=== PATIENT | male | born 1960 | race Caucasian/White ===

== ENCOUNTER → 2018-12-15 | Day surgery (SDC) | payer BC ==
[2018-12-15] MEDS: Lactated Ringers 1,000 ML IV SCH (08:05)
[2018-12-15] MEDS: Meperidine PF 50 MG/ML Syringe IV ONE (08:43)
[2018-12-15] MEDS: Midazolam 1 MG/ML 2 ML SDV IV ONE (08:44)
[2018-12-15] MEDS: Meperidine PF 25 MG/ML Syringe IV ONE (08:48)
--- NOTE | 2018-12-15 13:44 | OR ---
DATE OF OPERATION: 12/15/2018 PREOPERATIVE DIAGNOSIS: HEMATOCHEZIA. POSTOPERATIVE DIAGNOSIS: HEMATOCHEZIA. SURGEON: Young Reynoso MD PROCEDURE: DIAGNOSTIC COLONOSCOPY WITH BIOPSIES X3. ANESTHESIA: Conscious sedation with 75 mg of Demerol and 4 mg of Versed with continuous O2 sat monitoring and nurse assist. O2 sats remained above 90% the entire procedure. COMPLICATIONS: None. SPECIMEN: 1. Sigmoid biopsy x2. 2. Rectal biopsy x1. FINDINGS: 1. Full-length colonoscopy. 2. Moderate sigmoid diverticulosis with focal areas of likely diverticular inflammation. 3. Minimal rectal proctitis. RECOMMENDATIONS: Ongoing medical followup. INDICATIONS: The patient is a 58-year-old male who presented with hematochezia at times over the last couple of weeks. He does not have any documented history of significant hemorrhoid disease. His last colonoscopy however was over 10 years ago. We elected to proceed with diagnostic scope. DESCRIPTION OF PROCEDURE: The patient was prepped and draped, placed in the left lateral decubitus position. A lubricated Olympus colonoscope was inserted and easily advanced to the cecum. We were able to directly visualize the ileocecal valve and appendiceal orifice. The bowel prep was adequate. Upon withdrawal, the cecum, ascending and transverse colons were completely unremarkable. Descending colon was benign. The patient has scattered diverticula throughout the entire sigmoid and into the rectosigmoid junction, moderate in severity in certain places. He had a few areas in the distal sigmoid area that looked like they had some resolving colitis, very mild. We did do 2 biopsies of those areas. No signs of any polyps, mass, ulcerations, or vascular abnormalities. No bleeding sites. The rectal vault was essentially benign. There is some prominent hemorrhoidal tissue, but no active bleeding. May be a little bit of distal proctitis in the perianal area. We did do a biopsy for confirmation. Air was then suctioned from the colon. The scope was removed without complication. JOSE/LEDA /[id number]
== END ==
LOC: CC.SDS 07:47
PROVIDERS: ATTEND Family Medicine
DX: K57.31 Diverticulosis of large intestine without perforation or abscess with bleeding (principal); K52.832 Lymphocytic colitis; K62.89 Other specified diseases of anus and rectum; K64.9 Unspecified hemorrhoids; Z87.891 Personal history of nicotine dependence; Z88.0 Allergy status to penicillin
CPT/HCPCS: J2175; J2250; J7120

== ENCOUNTER 2021-08-15 09:08 | Emergency (ER) | payer BC, OTHER ==
[2021-08-15 09:34] LABS: CHLORIDE,CL 101 mEq/L (98-106); SODIUM,NA 134 mEq/L (136-145)
[2021-08-15] MEDS ORDERED: Cefepime 2 GM Vial IVPUSH ONE (10:47)
[2021-08-15] MEDS: cefTRIAXone 1 GM Vial IVPUSH SCH ×2 (10:47→10:50)
--- NOTE | 2021-08-15 11:03 | EDM.PDOC ---
ED HPI GENERAL MEDICAL PROBLEM - General Chief Complaint: General Stated Complaint: R KNEE SWELLING Time Seen by Provider: 08/15/21 09:20 Source of Information: Reports: Patient History Limitations: Reports: No Limitations - History of Present Illness INITIAL COMMENTS - FREE TEXT/NARRATIVE: Curt is a 61 year old male who presents to ER with complaints of right knee swelling, redness and pain. Started yesterday, was much worse last night. reports knee was very swollen, was warm and he was quite uncomfortable. They did elevate and apply ice. Had temp of 100.7 last evening, took Tylenol at that time and admits he was able to sleep okay. This am, redness and warmth continued. Has had previous issues with this in the past in the left knee but does not recall it being as hot or red. 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 Onset: Gradual Duration: Hour(s):, Constant Location: Reports: Lower Extremity, Right Quality: Reports: Ache, Throbbing Severity: Moderate Improves with: Reports: Medication Associated Symptoms: Reports: Fever/Chills. Denies: Confusion, Loss of Appetite , Nausea/Vomiting, Shortness of Breath Treatments [employer] WORKER: Reports: Acetaminophen R KNEE Pain Score (Numeric/FACES): 5 - Related Data Allergies Allergy/AdvReac Type Severity Reaction Status Date / Time Penicillins Allergy Cannot Verified 08/15/21 09:08 Remember Home Meds: Home Meds Budesonide [Budesonide EC] 3 mg PO DAILY 08/15/21 [History] Sulfamethoxazole/Trimethoprim [Bactrim Ds Tablet] 1 each PO BID #20 tablet 08/15/21 [Rx] Past Medical History Respiratory History: Reports: Asthma Social & Family History - Family History Family Medical History: No Pertinent Family History - Tobacco Use Tobacco Use Status *Q: Never Tobacco User - Caffeine Use Caffeine Use: Reports: None - Recreational Drug Use Recreational Drug Use: No ED ROS GENERAL - Review of Systems Review Of Systems: See Below Constitutional: Reports: Fever, Chills, Malaise. Denies: Decreased Appetite HEENT: Reports: No Symptoms Respiratory: Denies: Shortness of Breath, Cough Cardiovascular: Denies: Chest Pain, Edema Endocrine: Denies: Fatigue GI/Abdominal: Denies: Abdominal Pain, Nausea, Vomiting : Reports: No Symptoms Musculoskeletal: Reports: Joint Pain, Joint Swelling Skin: Reports: Erythema Neurological: Reports: No Symptoms ED EXAM, GENERAL - Physical Exam Exam: See Below Exam Limited By: No Limitations General Appearance: Alert, WD/WN, No Apparent Distress Ears: Normal External Exam, Normal TMs Nose: Normal Inspection, Normal Mucosa Throat/Mouth: Normal Inspection, Normal Oropharynx Head: Normocephalic Neck: Normal Inspection, Supple, Non-Tender Respiratory/Chest: No Respiratory Distress, Lungs Clear, Normal Breath Sounds Cardiovascular: Regular Rate, Rhythm Extremities: Increased Warmth, Other (right knee is red, swollen and tender from the patellar region and distal past the tendon area. ) Neurological: Alert, Oriented Skin Exam: Erythema Course - Vital Signs Last Recorded V/S: Last Vital Signs Temp 96.9 F 08/15/21 09:09 Pulse 83 08/15/21 09:09 Resp 16 08/15/21 09:09 BP 128/82 08/15/21 09:09 Pulse Ox 95 08/15/21 09:09 - Orders/Labs/Meds Orders: Active Orders 24 hr Category Date Time Status CULTURE WOUND [RM] Stat Lab 08/15/21 09:53 Ordered Labs: Laboratory Tests 08/15/21 08/15/21 Range/Units 09:17 09:17 WBC 12.7 H (4.0-11.0) 10^3/uL RBC 5.23 (4.50-6.00) x10^6/uL Hgb 15.1 (14.0-18.0) g/dL Hct 45.8 (42.0-52.0) % MCV 87.6 (83.0-97.0) fL MCH 28.9 (27.0-32.0) pg MCHC 33.0 (32.0-36.0) g/dL RDW Coeff of Miguel Angel 12.9 (11.0-15.0) % Plt Count 255 (150-400) 10^3/uL Immature Gran % (Auto) 0.2 (0.0-4.9) % Neut % (Auto) 66.0 (41-71) % Lymph % (Auto) 23.6 L (24-44) % [place] % (Auto) 9.8 (0-10) % Eos % (Auto) 0.2 (0-6) % Baso % (Auto) 0.2 (0-1) % Neut # (Auto) 8.38 H (1.80-8.00) x10^3/uL Lymph # (Auto) 2.99 (0.60-5.00) 10^3/uL [place] # (Auto) 1.24 (0.00-1.50) 10^3/uL Eos # (Auto) 0.03 (0.00-1.50) 10^3/uL Baso # (Auto) 0.02 (0.00-0.50) 10^3/uL Immature Gran # (Auto) 0.02 (0.00-0.49) 10^3/uL Sodium 134 L (136-145) mEq/L Potassium 3.7 (3.5-5.0) mEq/L Chloride 101 (98-106) mEq/L Carbon Dioxide 23 (21-32) mmol/L BUN 19 H (7-18) mg/dL Creatinine 1.1 (0.7-1.3) mg/dL Est Cr Clr Drug Dosing 79.70 mL/min Estimated GFR (MDRD) > 60 (>=60) mL/min Glucose 114 H (75-99) mg/dL Calcium 8.5 (8.4-10.1) mg/dL C-Reactive Protein 13.6 H (0.2-0.8) mg/dL Meds: Medications Discontinued Medications Generic Name Dose Route Start Last Admin Trade Name Freq PRN Reason Stop Dose Admin Cefepime HCl 2 gm 08/15/21 10:47 08/15/21 10:58 Cefepime 2 Gm Vial IVPUSH 08/15/21 10:48 2 gm ONETIME ONE Administration Ceftriaxone Sodium 1 gm 08/15/21 10:45 08/15/21 10:50 Ceftriaxone 1 Gm Vial IVPUSH Not Given Q24H [facility] Vancomycin HCl 1 dose 08/15/21 10:45 Pharmacy To Dose - Vancomycin .XX ASDIRECTED [facility] - Re-Assessments/Exams Free Text/Narrative Re-Assessment/Exam: 08/15/21 Labs noted 12.7 WBC, CRP 13.6. Other labs unremarkable. Contacted Teo Contreras for aspiration if possible. Teo Contreras in to aspirate right knee for gram stain and sent to lab. Lab reports scant area of gram positive noted. Will culture. Discussed with telepharmacy in regards to vancomycin and rocephin treatment as attempt to be done as outpatient. Reports would need to be here every 8 hours for vancomycin for best coverage. Will start Cefepime and cover with oral bactrim until culture report received. Departure - Departure Time of Disposition: 11:01 Disposition: Home, Self-Care 01 Condition: Good Clinical Impression: Septic prepatellar bursitis of right knee - Discharge Information *PRESCRIPTION DRUG MONITORING PROGRAM REVIEWED*: No *COPY OF PRESCRIPTION DRUG MONITORING REPORT IN PATIENT DOM: No Prescriptions: Sulfamethoxazole/Trimethoprim [Bactrim Ds Tablet] 1 each PO BID #20 tablet Instructions: Prepatellar Bursitis Referrals: Young Reynoso MD [Primary Care Provider] - Forms: ED Department Discharge Additional Instructions: 1. Elevate knee 2. Jose wrap for compression/comfort 3. Avoid further kneeling/trauma 4. Present here to [facility] every 12 hours for IV antibiotic 5. Bactrim DS one twice a day for 10 days 6. Will call you with culture report and determine length of needed IV antibiotics 7. Call with any questions or concerns. Sepsis Event Note (ED) - Evaluation Sepsis Screening Result: No Definite Risk - Focused Exam Vital Signs: Vital Signs Temp Pulse Resp BP Pulse Ox 08/15/21 09:09 96.9 F 83 16 128/82 95 - My Orders Last 24 Hours: My Active Orders 08/15/21 09:53 CULTURE WOUND [RM] Stat - Assessment/Plan Last 24 Hours: My Active Orders 08/15/21 09:53 CULTURE WOUND [RM] Stat
== END 2021-08-15 11:13 | disposition home or self-care (01) ==
LOC: CC.ED 09:08
DX: M70.41 Prepatellar bursitis, right knee (principal); Z88.0 Allergy status to penicillin
CPT/HCPCS: 36415; 80048; 85025; 86140; 87070; 87205; 96374; 99284; J0692; J0696

== ENCOUNTER 2024-01-20 09:39 | Day surgery (SDC) | payer OTHER ==
[~2024-01-20 09:39] MED LIST: Lactated Ringers 1,000 ML IV SCH
[2024-01-20] MEDS ORDERED: fentaNYL 50 MCG/ML SDV ONE (10:40)
[2024-01-20] MEDS ORDERED: Ketamine 200 MG/20 ML MDV ONE (10:40)
[2024-01-20] MEDS ORDERED: Propofol 200 MG/20 ML SDV ONE (10:40)
== END 2024-01-20 12:01 | disposition home or self-care (01) ==
LOC: CC.SDS 09:39
PROVIDERS: ATTEND Family Medicine
DX: Z12.11 Encounter for screening for malignant neoplasm of colon (principal); K57.30 Diverticulosis of large intestine without perforation or abscess without bleeding; N40.0 Benign prostatic hyperplasia without lower urinary tract symptoms; D23.9 Other benign neoplasm of skin, unspecified; K64.4 Residual hemorrhoidal skin tags; E78.5 Hyperlipidemia, unspecified; K52.832 Lymphocytic colitis; L82.1 Other seborrheic keratosis; Z88.0 Allergy status to penicillin; Z79.899 Other long term (current) drug therapy; Z87.891 Personal history of nicotine dependence; G25.0 Essential tremor; L57.0 Actinic keratosis
CPT/HCPCS: 00811; 45380; J2704; J3010; J3490